=== PATIENT | female | born 1975 | race Caucasian/White ===

== ENCOUNTER 2018-09-09 19:40 | Emergency (ER) | payer MEDICAID ==
[~2018-09-09] VITALS: Ht 170.2 cm; Wt 61.2 kg
[2018-09-09] MEDS ORDERED: TDAP DIPH,PERTUSS,TET VAC/PF 0.5 ML DISP.SYRIN IM ONE (20:00)
--- NOTE | 2018-09-09 20:00 | NUR ---
ASSESS PT IS ALERT AWAKE ORIENTED TIMES FOUR OVERALL APPEARANCES FAIR STATED SHE WAS ON A SCOTTER AND FELL ON HER LEFT SHOULDER DENIES LOC DID NOTE RIGHT KNEE ABRASION PT STATED HER PAIN LEVEL IS A 8 BUT REFUSED FOR ANY PAIN MEDICATION COMFORT AND SAFETY MAINTAINED HER BOYFRIEND AT HER SIDE
--- NOTE | 2018-09-09 20:30 | NUR ---
PT VOIDED IN BEDPAN URINE WAS COLLECTED
[2018-09-09 20:45] LABS: BASOPHILS % (AUTO) 0.5 % (0.0-2.0); EOSINOPHILS # (AUTO) 0.2 K/uL (0.0-0.7); EOSINOPHILS % (AUTO) 3.4 % (0.0-7.0); HEMATOCRIT 42.8 % (31.2-41.9); HEMOGLOBIN 14.1 g/dL (10.9-14.3); LYMPHOCYTES # (AUTO) 1.1 K/uL (20.0-40.0); LYMPHOCYTES % (AUTO) 16.7 % (20.5-51.5); MEAN CORPUSCULAR HEMOGLOBIN 30.1 uug (24.7-32.8); MEAN CORPUSCULAR HGB CONC 33 g/dL (32.3-35.6); MONOCYTES # (AUTO) 0.5 K/uL (2.0-10.0); MONOCYTES % (AUTO) 6.8 % (0.0-11.0); NEUTROPHILS # (AUTO) 4.9 K/uL (1.8-8.9); NEUTROPHILS % (AUTO) 72.6 % (38.5-71.5); PLATELET COUNT (AUTO) 264 K/uL (179-408); WHITE BLOOD COUNT (AUTO) 6.8 K/uL (3.8-11.8)
[2018-09-09] MEDS ORDERED: MORPHINE SULFATE 4 MG/1 ML DISP.SYRIN IV ONE ×2 (20:45→21:15)
[2018-09-09] MEDS ORDERED: MORPHINE SULFATE 4 MG/1 ML DISP.SYRIN ONE ×2 (20:47→22:00)
[2018-09-09 20:50] LABS: CREATININE 0.9 mg/dL (0.6-1.3); POTASSIUM 4.7 mmol/L (3.5-5.1)
--- NOTE | 2018-09-09 21:00 | NUR ---
PT WAS GIVEN MORPHINE FOR PAIN DENIES ALLERGY MED TEACHING GIVEN COMFORT AND SAFETY MAINTAINED
--- NOTE | 2018-09-09 21:20 | NUR ---
PAIN MED WAS EFFECTIVE PT WENT TO RADIOLOGY DEPT
[2018-09-09] MEDS ORDERED: SWABABLE VALVE TRANSFER SET EA MC ONE (21:33)
[2018-09-09] MEDS ORDERED: IV NORMAL SALINE 250 ML IV ONE (21:34)
[2018-09-09] MEDS ORDERED: IOHEXOL 300MG/ML 100 ML INFUS..BTL ONE (21:34)
--- NOTE | 2018-09-09 22:15 | NUR ---
PT BACK FROM RADIOLOGY DEPT WAS MED TIME WITH MORPHINE AGAIN FOR PIAN, COMFORT AND SAFETY MAINTAINED
--- NOTE | 2018-09-09 22:40 | NUR ---
PAIN MED WAS EFFECTIVE SPLINT AND ARM SLING PLACED ON LEFT UPPER ARM PT SAMM WELL OVERALL APPEARANCES FAIR PT IS BEING DISCHARGE TO HOME DISCHARGE TEACHING AND PRESRIPTION TEACHING GIVEN PT VOICED HER UNDERSTANDING ALONG WITH HER BOYFRIEND HL REMOVED SITE WNL
[2018-09-09 23:02] VITALS: BP 132/80
== END 2018-09-09 22:40 | disposition home or self-care (01) ==
LOC: ER 19:40
DX: S52.022A Displaced fracture of olecranon process without intraarticular extension of left ulna, initial encounter for closed fracture (principal); S80.211A Abrasion, right knee, initial encounter; S40.212A Abrasion of left shoulder, initial encounter; M25.572 Pain in left ankle and joints of left foot; R07.89 Other chest pain; Z88.2 Allergy status to sulfonamides; Z91.040 Latex allergy status; W05.1XXA Fall from non-moving nonmotorized scooter, initial encounter; Y93.89 Activity, other specified; Y92.89 Other specified places as the place of occurrence of the external cause; Y99.8 Other external cause status
CPT/HCPCS: 29105; 36415; 71045; 71260; 73020; 73080; 73564; 73610; 80048; 85025; 93005; 96374; 96376; 99284; J2270 ×2; Q9967; A4663; J7050